=== PATIENT | male | born 1955 | race Caucasian/White ===

== ENCOUNTER 2018-01-28 07:15 | Inpatient (IN) | payer MEDICAID ==
[~2018-01-28] VITALS: Ht 172.7 cm; Wt 80.8 kg
[2018-01-28 07:56] LABS: MEAN CORPUSCULAR HEMOGLOBIN 32.8 pg (27.5-34.5); MEAN CORPUSCULAR HGB CONC 34.7 g/dL (33.2-36.2); MEAN CORPUSCULAR VOLUME 94.4 fL (81-97); MEAN PLATELET VOLUME 8.1 fL (7.4-10.4); PLATELET COUNT 297 x10^3/uL (130-400); RED BLOOD COUNT 5.01 x10^6/uL (4.38-5.82); RED CELL DISTRIBUTION WIDTH 12.4 % (9.4-14.8)
[2018-01-28 08:06] LABS: ALBUMIN 4.7 g/dL (3.4-5.0); ANION GAP 17 mmol/L (5-15); CALCIUM 9.2 mg/dL (8.5-10.1); CHLORIDE 114 mmol/L (98-107)
[2018-01-28] MEDS ORDERED: ASPIRIN 81 MG TABLET CHEW ONE (08:19)
[2018-01-28 08:22] LABS: BASOPHILS # (AUTO) 0.03 x10^3/uL (0-0.1); BASOPHILS % (AUTO) 0 % (0-1); EOSINOPHILS # (AUTO) 0.03 x10^3/uL (0-0.4); EOSINOPHILS % (AUTO) 0 % (1-7); LYMPHOCYTES # (AUTO) 0.94 x10^3/uL (1-3.4); LYMPHOCYTES % (AUTO) 5 % (22-44); MD SCAN; MONOCYTES # (AUTO) 1.01 x10^3/uL (0.2-0.8); MONOCYTES % (AUTO) 5 % (2-9); NEUTROPHILS % (AUTO) 90 % (42-75)
[2018-01-28] MEDS ORDERED: ASPIRIN 81 MG TABLET CHEW PO ONE (08:30)
[2018-01-28] MEDS ORDERED: LORazepam 2 MG/ML, 1ML IV PRN ×4 (09:30)
[2018-01-28] MEDS ORDERED: ONDANSETRON ODT 4 MG PO PRN (09:30)
[2018-01-28] MEDS ORDERED: HYDROcodone/APAP 5/325 TABLET PO PRN (09:30)
[2018-01-28] MEDS ORDERED: LORazepam 1MG TABLET PO PRN ×2 (09:30→10:00)
[2018-01-28] MEDS ORDERED: ONDANSETRON 2MG/ML, 2ML IVPush PRN (09:30)
[2018-01-28] MEDS ORDERED: LORazepam 0.5MG TABLET PO PRN (09:30)
[2018-01-28] MEDS ORDERED: LABETALOL 5MG/ML, 20ML IVPush ONE ×3 (09:30→11:30)
[2018-01-28] MEDS ORDERED: LORazepam 2 MG/ML, 1ML ONE ×2 (09:37→10:41)
[2018-01-28] MEDS: LORazepam 2 MG/ML, 1ML IV PRN ×2 (09:42→10:41)
[2018-01-28] MEDS ORDERED: LISI5TAB7 PO (09:47)
[2018-01-28] MEDS ORDERED: ATOR40TA78 PO (09:47)
[2018-01-28] MEDS ORDERED: TAMS-11 PO (09:47)
[2018-01-28 09:52] LABS: INTERNATIONAL NORMALIZED RATIO 0.96 (0.93-1.1)
[2018-01-28 09:56] LABS: FREE T4 (FREE THYROXINE) 0.98 ng/dL (0.76-1.46)
[2018-01-28] MEDS ORDERED: SODIUM CHLORIDE 0.9% 1,000ML IVBOLUS ONE (10:00)
[2018-01-28 10:01] LABS: THYROID STIMULATING HORMONE 0.532 mIU/L (0.358-3.740)
[2018-01-28] MEDS ORDERED: HEPARIN 5,000 UNITS/ML, 1ML ONE (10:24)
[2018-01-28] MEDS ORDERED: HEPARIN 25,000 UNITS/500ML PMX 500 ML ONE (10:24)
[2018-01-28] MEDS ORDERED: LABETALOL 5MG/ML, 20ML ONE (10:25)
[2018-01-28] MEDS: HEPARIN 25,000 UNITS/500ML PMX 500 ML IV PRN (10:33)
[2018-01-28] MEDS ORDERED: HEPARIN 5,000 UNITS/ML, 1ML IV ONE (11:00)
[2018-01-28 11:11] VITALS: BP 127/86
[2018-01-28 11:28] LABS: AMPHETAMINE SCREEN, URINE Positive (Negative); BARBITURATE SCREEN, URINE Negative (Negative); BENZODIAZEPINE SCREEN, URINE Negative (Negative); CANNABINOID SCREEN, URINE Negative (Negative); COCAINE SCREEN, URINE Negative (Negative); METHADONE SCREEN, URINE Negative (Negative); OPIATE SCREEN, URINE Negative (Negative)
[2018-01-28] MEDS ORDERED: ZIPRASIDONE 20 MG INJ IM PRN (11:30)
[2018-01-28] MEDS: LACTATED RINGERS 1,000 ML IV SCH ×2 (11:56→18:41)
[2018-01-28 12:40] VITALS: BP 123/85
[2018-01-28] MEDS: POTASSIUM CHLORIDE 20 MEQ, MAGNESIUM SULFATE 1 GM, FOLIC ACID 1 MG, THIAMINE 200 MG, MV... IV SCH (13:07)
[2018-01-28 14:47] LABS: CREATININE,URINE RANDOM 71.5 mg/dL
[2018-01-28] MEDS ORDERED: ZIPRASIDONE 20 MG INJ IM ONE (17:32)
[2018-01-28] MEDS: ZIPRASIDONE 20 MG INJ IM PRN (17:42)
[2018-01-28] MEDS: HEPARIN 5,000 UNITS/ML, 1ML IV PRN (18:46)
[2018-01-28 18:54] VITALS: BP 128/82
[2018-01-28] MEDS: ATORVASTATIN 40 MG TABLET PO SCH (20:21)
[2018-01-29 00:06] VITALS: BP 148/85
[2018-01-29] MEDS: LACTATED RINGERS 1,000 ML IV SCH ×4 (01:59→14:30)
[2018-01-29] MEDS: ZIPRASIDONE 20 MG INJ IM PRN ×2 (05:57→20:24)
[2018-01-29] MEDS: ASPIRIN 81 MG TABLET EC PO SCH (05:57)
[2018-01-29 07:14] VITALS: BP 131/80
[2018-01-29 08:38] LABS: ALANINE AMINOTRANSFERASE 117 U/L (12-78); ALBUMIN 3.7 g/dL (3.4-5.0); ANION GAP 5 mmol/L (5-15); CALCIUM 8.5 mg/dL (8.5-10.1); CHLORIDE 115 mmol/L (98-107)
[2018-01-29 08:41] LABS: ALKALINE PHOSPHATASE 67 U/L (45-117); BILIRUBIN,TOTAL 0.7 mg/dL (0.2-1.0); CHOL/HDL RATIO 4.6; CHOLESTEROL, TOTAL 198 mg/dL (140-239); CREATININE 1.71 mg/dL (0.7-1.3); HDL CHOL % 22 % (26-37); HDL CHOLESTEROL (DIRECT) 43 mg/dL (40-60); LDL CHOLESTEROL,CALCULATED 113 mg/dL (54-169); LDL/HDL RATIO 2.6 (0.5-3.0); TOTAL PROTEIN 6.8 g/dL (6.4-8.2); TRIGLYCERIDES 209 mg/dL (50-200); VLDL CHOLESTEROL 42 mg/dL (0-25)
[2018-01-29 08:51] LABS: BASOPHILS # (AUTO) 0.07 x10^3/uL (0-0.1); BASOPHILS % (AUTO) 1 % (0-1); EOSINOPHILS # (AUTO) 0.01 x10^3/uL (0-0.4); EOSINOPHILS % (AUTO) 0 % (1-7); LYMPHOCYTES # (AUTO) 1.55 x10^3/uL (1-3.4); LYMPHOCYTES % (AUTO) 14 % (22-44); MD SCAN; MEAN CORPUSCULAR HGB CONC 34.2 g/dL (33.2-36.2); MEAN CORPUSCULAR VOLUME 93.7 fL (81-97); MEAN PLATELET VOLUME 8.1 fL (7.4-10.4); MONOCYTES % (AUTO) 6 % (2-9); NEUTROPHILS # (AUTO) 9.17 x10^3/uL (1.8-6.8); NEUTROPHILS % (AUTO) 80 % (42-75); PLATELET COUNT 197 x10^3/uL (130-400); RED BLOOD COUNT 4.58 x10^6/uL (4.38-5.82); RED CELL DISTRIBUTION WIDTH 12.7 % (9.4-14.8)
[2018-01-29] MEDS: TAMSULOSIN 0.4 MG CAP.ER.24H PO SCH (08:51)
[2018-01-29] MEDS: SENNA/DOCUSATE TABLET PO SCH (08:52)
[2018-01-29] MEDS: HEPARIN 5,000 UNITS/ML, 1ML IV PRN ×2 (08:54→15:12)
[2018-01-29] MEDS: HEPARIN 25,000 UNITS/500ML PMX 500 ML IV PRN (12:48)
[2018-01-29 14:07] VITALS: BP 137/77
[2018-01-29] MEDS: POTASSIUM CHLORIDE 20 MEQ, MAGNESIUM SULFATE 1 GM, FOLIC ACID 1 MG, THIAMINE 200 MG, MV... IV SCH (15:19)
[2018-01-29] MEDS ORDERED: MAGNESIUM SULFATE PMX IV SCH (16:32)
[2018-01-29] MEDS ORDERED: [UNRECOGNIZED DRUG - OTHER] IV SCH (16:32)
[2018-01-29] MEDS ORDERED: FOLIC ACID IV SCH (16:32)
[2018-01-29] MEDS ORDERED: POTASSIUM CHLORIDE IV SCH (16:32)
[2018-01-29] MEDS: FUROSEMIDE 20 MG/2 ML IV SCH ×2 (17:00→18:00)
[2018-01-29 17:21] LABS: BASOPHILS # (AUTO) 0.06 x10^3/uL (0-0.1); BASOPHILS % (AUTO) 1 % (0-1); EOSINOPHILS # (AUTO) 0.07 x10^3/uL (0-0.4); EOSINOPHILS % (AUTO) 1 % (1-7); LYMPHOCYTES # (AUTO) 1.69 x10^3/uL (1-3.4); LYMPHOCYTES % (AUTO) 17 % (22-44); MD NO; MEAN CORPUSCULAR HEMOGLOBIN 32.6 pg (27.5-34.5); MEAN CORPUSCULAR HGB CONC 34.6 g/dL (33.2-36.2); MEAN CORPUSCULAR VOLUME 94.1 fL (81-97); MEAN PLATELET VOLUME 7.8 fL (7.4-10.4); MONOCYTES # (AUTO) 0.55 x10^3/uL (0.2-0.8); MONOCYTES % (AUTO) 6 % (2-9); NEUTROPHILS # (AUTO) 7.68 x10^3/uL (1.8-6.8); NEUTROPHILS % (AUTO) 76 % (42-75); PLATELET COUNT 169 x10^3/uL (130-400); RED BLOOD COUNT 4.41 x10^6/uL (4.38-5.82); RED CELL DISTRIBUTION WIDTH 12.7 % (9.4-14.8)
[2018-01-29 17:29] LABS: ALBUMIN 3.5 g/dL (3.4-5.0); ANION GAP 6 mmol/L (5-15); CALCIUM 8.3 mg/dL (8.5-10.1); CHLORIDE 112 mmol/L (98-107)
[2018-01-29 17:36] LABS: ALANINE AMINOTRANSFERASE 118 U/L (12-78); ALKALINE PHOSPHATASE 64 U/L (45-117); BILIRUBIN,TOTAL 0.6 mg/dL (0.2-1.0); CREATININE 1.66 mg/dL (0.7-1.3); TOTAL PROTEIN 6.5 g/dL (6.4-8.2)
[2018-01-29 20:19] VITALS: BP 84/45
[2018-01-29] MEDS: ATORVASTATIN 40 MG TABLET PO SCH (20:29)
[2018-01-29 21:52] VITALS: BP 151/89
[2018-01-30] MEDS ORDERED: METOPROLOL 1 MG/ML, 5ML ONE (02:19)
[2018-01-30] MEDS ORDERED: METOPROLOL 1 MG/ML, 5ML IVPush ONE (02:30)
[2018-01-30] MEDS ORDERED: HALOPERIDOL 5 MG/ML IM ONE ×2 (02:30→03:00)
[2018-01-30 03:00] VITALS: BP 125/89
[2018-01-30 03:20] VITALS: BP 129/67
[2018-01-30] MEDS ORDERED: ZIPRASIDONE 20 MG INJ IM ONE (03:30)
[2018-01-30] MEDS ORDERED: LORazepam 2 MG/ML, 1ML IVPush PRN (07:30)
[2018-01-30] MEDS ORDERED: POTASSIUM PHOSPHATE 44 MEQ in SODIUM CHLORIDE 0.9% 500 ML IV ONE (07:30)
[2018-01-30] MEDS: HEPARIN 5,000 UNITS/ML, 1ML IV PRN ×2 (07:38→20:03)
[2018-01-30] MEDS: HEPARIN 25,000 UNITS/500ML PMX 500 ML IV PRN ×2 (07:41→23:08)
[2018-01-30] MEDS ORDERED: ZIPRASIDONE 20 MG INJ IM PRN (08:30)
[2018-01-30] MEDS: ASPIRIN 81 MG TABLET EC PO SCH (08:45)
[2018-01-30] MEDS: TAMSULOSIN 0.4 MG CAP.ER.24H PO SCH (08:47)
[2018-01-30] MEDS: SENNA/DOCUSATE TABLET PO SCH (08:47)
[2018-01-30] MEDS: FUROSEMIDE 20 MG/2 ML IV SCH (08:58)
[2018-01-30] MEDS ORDERED: THIAMINE 200 MG in SODIUM CHLORIDE 0.9% 50 ML IV SCH (09:00)
[2018-01-30] MEDS ORDERED: POTASSIUM CHLORIDE 20 MEQ, MAGNESIUM SULFATE 1 GM, THIAMINE 200 MG, FOLIC ACID 1 MG, MV... IV SCH (10:00)
[2018-01-30] MEDS ORDERED: ENALAPRILAT 1.25 MG/ML, 2ML IV PRN (16:00)
[2018-01-30 17:31] VITALS: BP 125/80
[2018-01-30 18:26] VITALS: BP 125/80
[2018-01-31 02:00] VITALS: BP 127/78
[2018-01-31 02:24] LABS: BASOPHILS # (AUTO) 0.05 x10^3/uL (0-0.1); BASOPHILS % (AUTO) 1 % (0-1); EOSINOPHILS # (AUTO) 0.21 x10^3/uL (0-0.4); EOSINOPHILS % (AUTO) 3 % (1-7); LYMPHOCYTES # (AUTO) 2.38 x10^3/uL (1-3.4); LYMPHOCYTES % (AUTO) 30 % (22-44); MD NO; MEAN CORPUSCULAR HEMOGLOBIN 32.4 pg (27.5-34.5); MEAN CORPUSCULAR HGB CONC 34.9 g/dL (33.2-36.2); MEAN CORPUSCULAR VOLUME 92.9 fL (81-97); MEAN PLATELET VOLUME 7.8 fL (7.4-10.4); MONOCYTES # (AUTO) 0.54 x10^3/uL (0.2-0.8); MONOCYTES % (AUTO) 7 % (2-9); NEUTROPHILS % (AUTO) 60 % (42-75); PLATELET COUNT 189 x10^3/uL (130-400); RED BLOOD COUNT 4.36 x10^6/uL (4.38-5.82); RED CELL DISTRIBUTION WIDTH 12.3 % (9.4-14.8)
[2018-01-31 02:32] LABS: ALANINE AMINOTRANSFERASE 114 U/L (12-78); ALBUMIN 3.3 g/dL (3.4-5.0); ANION GAP 5 mmol/L (5-15); BILIRUBIN, DIRECT 0.2 mg/dL (0.1-0.2); CALCIUM 8.4 mg/dL (8.5-10.1); CHLORIDE 108 mmol/L (98-107)
[2018-01-31 02:34] LABS: ALKALINE PHOSPHATASE 63 U/L (45-117); BILIRUBIN,TOTAL 0.7 mg/dL (0.2-1.0); CREATININE 1.16 mg/dL (0.7-1.3); TOTAL PROTEIN 6.6 g/dL (6.4-8.2)
[2018-01-31 02:36] LABS: HEMOGLOBIN A1C 5.3 % (4.2-6.3)
[2018-01-31 02:57] LABS: BILIRUBIN,INDIRECT 0.5 mg/dL (0.0-2.0)
[2018-01-31] MEDS: ASPIRIN 81 MG TABLET EC PO SCH (05:20)
[2018-01-31] MEDS: TAMSULOSIN 0.4 MG CAP.ER.24H PO SCH (08:04)
[2018-01-31] MEDS: NICOTINE 21 MG/24 HR PATCH.TD24 TD SCH (08:05)
[2018-01-31 08:11] VITALS: BP 123/81
[2018-01-31] MEDS: SENNA/DOCUSATE TABLET PO SCH (09:00)
[2018-01-31] MEDS: HEPARIN 25,000 UNITS/500ML PMX 500 ML IV PRN (14:03)
[2018-01-31 14:05] VITALS: BP 129/83
[2018-01-31] MEDS: METOPROLOL SUCCINATE 25 MG TAB.ER.24H PO SCH (14:07)
[2018-01-31 19:37] VITALS: BP 124/78
[2018-01-31] MEDS: ATORVASTATIN 40 MG TABLET PO SCH (19:46)
[2018-02-01 01:59] VITALS: BP 142/83
[2018-02-01 06:35] VITALS: BP 146/87
[2018-02-01] MEDS ORDERED: NITROGLYCERIN 0.4 MG BOTTLE (25 TABS) SL PRN (07:30)
[2018-02-01] MEDS ORDERED: SODIUM CHLORIDE 0.9% 1,000 ML IV SCH (07:30)
[2018-02-01] MEDS: ASPIRIN 81 MG TABLET EC PO SCH (08:17)
[2018-02-01] MEDS: METOPROLOL SUCCINATE 25 MG TAB.ER.24H PO SCH (08:17)
[2018-02-01] MEDS: NICOTINE 21 MG/24 HR PATCH.TD24 TD SCH (08:18)
[2018-02-01] MEDS: TAMSULOSIN 0.4 MG CAP.ER.24H PO SCH (08:18)
[2018-02-01] MEDS: SENNA/DOCUSATE TABLET PO SCH (08:20)
[2018-02-01 08:54] LABS: INTERNATIONAL NORMALIZED RATIO 0.96 (0.93-1.1)
[2018-02-01 08:55] LABS: ANION GAP 5 mmol/L (5-15); CALCIUM 9.2 mg/dL (8.5-10.1); CHLORIDE 108 mmol/L (98-107); CREATININE 1.14 mg/dL (0.7-1.3)
[2018-02-01 09:01] LABS: BASOPHILS # (AUTO) 0.04 x10^3/uL (0-0.1); BASOPHILS % (AUTO) 1 % (0-1); EOSINOPHILS # (AUTO) 0.16 x10^3/uL (0-0.4); EOSINOPHILS % (AUTO) 3 % (1-7); LYMPHOCYTES # (AUTO) 1.64 x10^3/uL (1-3.4); LYMPHOCYTES % (AUTO) 26 % (22-44); MD NO; MEAN CORPUSCULAR HEMOGLOBIN 32.3 pg (27.5-34.5); MEAN CORPUSCULAR HGB CONC 34.4 g/dL (33.2-36.2); MEAN CORPUSCULAR VOLUME 93.9 fL (81-97); MEAN PLATELET VOLUME 8.6 fL (7.4-10.4); MONOCYTES # (AUTO) 0.54 x10^3/uL (0.2-0.8); MONOCYTES % (AUTO) 9 % (2-9); NEUTROPHILS # (AUTO) 4.02 x10^3/uL (1.8-6.8); NEUTROPHILS % (AUTO) 63 % (42-75); PLATELET COUNT 216 x10^3/uL (130-400); RED BLOOD COUNT 4.61 x10^6/uL (4.38-5.82)
[2018-02-01] MEDS ORDERED: MIDAZOLAM 1 MG/ML, 5ML ONE (13:24)
[2018-02-01] MEDS ORDERED: TICAGRELOR 90 MG TABLET ONE (13:24)
[2018-02-01] MEDS ORDERED: VERAPAMIL 2.5 MG/ML, 2ML ONE (13:24)
[2018-02-01] MEDS ORDERED: FENTANYL PF 100 MCG/2ML ONE (13:24)
[2018-02-01] MEDS ORDERED: BIVALIRUDIN 250 MG ONE (13:24)
[2018-02-01] MEDS ORDERED: HEPARIN 1,000 UNITS/ML, 10ML ONE (13:25)
[2018-02-01] MEDS ORDERED: LIDOCAINE-MPF 2% ,5ML ONE (13:35)
[2018-02-01 13:55] VITALS: BP 119/75
[2018-02-02] MEDS ORDERED: NICOTINE 21 MG/24 HR PATCH.TD24 TD SCH (08:00)
== END 2018-02-01 16:37 | disposition left against medical advice (07) | DRG 280 ==
LOC: ED 07:49 → EDIP 09:17 → 5SO 10:56 → CCU 01-30 03:36 → 5SO 01-30 17:22
PROVIDERS: ADMIT Hospitalist; ATTEND Hospitalist
PROC: 4A023N7 Measurement of Cardiac Sampling and Pressure, Left Heart, Percutaneous Approach (ICD-10-PCS; principal; 2018-02-01)
PROC: B2111ZZ Fluoroscopy of Multiple Coronary Arteries using Low Osmolar Contrast (ICD-10-PCS; 2018-02-01)
PROC: B2151ZZ Fluoroscopy of Left Heart using Low Osmolar Contrast (ICD-10-PCS; 2018-02-01)
DX: I21.A1 Myocardial infarction type 2 (principal); G92 Toxic encephalopathy; I50.23 Acute on chronic systolic (congestive) heart failure; E87.2 Acidosis; I42.9 Cardiomyopathy, unspecified; N17.9 Acute kidney failure, unspecified; E78.00 Pure hypercholesterolemia, unspecified; I25.10 Atherosclerotic heart disease of native coronary artery without angina pectoris; E78.5 Hyperlipidemia, unspecified; E86.0 Dehydration; F10.20 Alcohol dependence, uncomplicated; F12.90 Cannabis use, unspecified, uncomplicated; F15.129 Other stimulant abuse with intoxication, unspecified; F17.210 Nicotine dependence, cigarettes, uncomplicated; F29 Unspecified psychosis not due to a substance or known physiological condition; K70.10 Alcoholic hepatitis without ascites; I11.0 Hypertensive heart disease with heart failure; N40.0 Benign prostatic hyperplasia without lower urinary tract symptoms; Z53.21 Procedure and treatment not carried out due to patient leaving prior to being seen by health care provider; W01.0XXA Fall on same level from slipping, tripping and stumbling without subsequent striking against object, initial encounter; Y93.89 Activity, other specified; Y92.89 Other specified places as the place of occurrence of the external cause; Y99.2 Volunteer activity; Z59.0 Homelessness; Z78.1 Physical restraint status; Z79.899 Other long term (current) drug therapy; Z82.49 Family history of ischemic heart disease and other diseases of the circulatory system; Z86.73 Personal history of transient ischemic attack (TIA), and cerebral infarction without residual deficits; Z91.83 Wandering in diseases classified elsewhere
CPT/HCPCS: 36415; 73502; 87806; 93458; 99285; J7121; 71045; 76770; 80048; 80053; 80061; 80074; 80076; 80307; 82040; 82570; 83036; 83605; 83690; 83735; 84100; 84300; 84439; 84443; 84484; 85025; 85520; 85610; 87040; 87081; 93005; 93306; 99156; C1769; C1894; J0583; J1644; J2250; J3010; J3411; J3475; J3480; J3486; J3490; G0475; J1630; J1940; J2060; J7030; J7040; J7120; Q9967